=== PATIENT | female | born 1985 | race Two or more races ===

== ENCOUNTER 2018-08-07 15:51 | Emergency (ER) | payer MEDICAID, OTHER ==
[2018-08-07 16:23] LABS: #Basophils 0.1 thou/uL (0.0-0.2); #Eosinphils 0.4 thou/uL (0.0-0.7); #Lymphocytes 2.2 thou/uL (1.20-3.40); #Neutrophils 6.3 thou/uL (1.40-6.50); %Basophils 1.1 % (0.0-1.0); %Eosinophils 4.3 % (0.0-10.0); %Monocytes 9.6 % (0.0-10.0); Hemoglobin 13.5 g/dL (12.0-16.0); Mean Corpuscular HGB CONC 32.7 g/dL (32.0-36.0); Mean Corpuscular Hemoglobin 28.5 pg (27.0-31.0); Mean Corpuscular Volume 87.2 fL (78.0-98.0); Mean Platelet Volume 7.7 fL (7.4-10.4); Platelet Count 270 thou/uL (130-400); RBC Distribution Width 12.1 % (11.5-14.5); Red Blood Cell (RBC) Count 4.73 mill/uL (4.20-5.40)
[2018-08-07] MEDS ORDERED: Ketorolac Tromethamine 30 MG/ML VIAL ONE (16:30)
[2018-08-07 16:37] LABS: BHCG - Serum Negative (NEGATIVE); Pregs Control Background? CLEAR/WHITE (CLR/WHITE); Pregs Control Bar Appear? YES (CONTROL BAR)
== END 2018-08-07 16:47 ==
LOC: BURERS 15:51
DX: N93.8 Other specified abnormal uterine and vaginal bleeding (principal); F43.10 Post-traumatic stress disorder, unspecified; F17.210 Nicotine dependence, cigarettes, uncomplicated; F90.9 Attention-deficit hyperactivity disorder, unspecified type; F41.9 Anxiety disorder, unspecified
CPT/HCPCS: 36415; 84703; 85025; 87491; 87591; 96374; J1885

== ENCOUNTER 2018-08-18 11:24 | Outpatient (CLI) | payer OTHER ==
--- NOTE | 2018-08-19 07:56 | ULT ---
Exam: Pelvic ultrasound HISTORY: Pelvic pain COMPARISON: None TECHNIQUE: Multiple grayscale and color Doppler images were obtained in a transabdominal pelvic ultra sound. Spectral analysis of the Doppler waveforms of the ovaries were performed. FINDINGS: CERVIX: Small nabothian cysts seen UTERUS: Normal in size without focal abnormality. ENDOMETRIAL STRIPE: 8 mm. No free fluid is seen in the pelvis. RIGHT OVARY: Normal flow without focal mass. LEFT OVARY: Normal flow without focal mass. Normal follicles are seen in both ovaries. IMPRESSION: Small nabothian cysts; otherwise unremarkable exam.
== END 2018-08-18 11:25 | disposition home or self-care (01) ==
LOC: BURULT 11:24
PROVIDERS: ATTEND Physician Assistant
DX: N92.1 Excessive and frequent menstruation with irregular cycle (principal); R10.30 Lower abdominal pain, unspecified; N88.8 Other specified noninflammatory disorders of cervix uteri
CPT/HCPCS: 76856

== ENCOUNTER 2018-10-07 10:42 | Emergency (ER) | payer OTHER ==
[2018-10-07] MEDS ORDERED: Lidocaine 2% w/ Epi 1:200K 10 ML VIAL ONE (10:50)
== END 2018-10-07 11:01 | disposition home or self-care (01) ==
LOC: BURERS 10:42
DX: M79.81 Nontraumatic hematoma of soft tissue (principal); J45.909 Unspecified asthma, uncomplicated; F43.10 Post-traumatic stress disorder, unspecified; F90.9 Attention-deficit hyperactivity disorder, unspecified type; F17.210 Nicotine dependence, cigarettes, uncomplicated
CPT/HCPCS: 10140

== ENCOUNTER 2022-10-27 19:39 | Emergency (ER) | payer OTHER, SELFPAY | END 2022-10-27 20:48 | disposition home or self-care (01) | LOC: BURERS 19:39 | DX: S83.92XA Sprain of unspecified site of left knee, initial encounter (principal); F17.210 Nicotine dependence, cigarettes, uncomplicated; X50.1XXA Overexertion from prolonged static or awkward postures, initial encounter ==